=== PATIENT | male | born 2000 | race Caucasian/White ===

== ENCOUNTER 2021-04-08 09:44 | Emergency (ER) | payer OTHER ==
[2021-04-08 10:00] VITALS: BP 142/76
--- NOTE | 2021-04-08 10:48 | ED Physician Documentation ---
History of Present Illness - Stated complaint Stated Complaint: MALE - Chief complaint Chief Complaint: Abd Pain - History obtained from History obtained from: Patient - History of Present Illness Timing: How many weeks ago (several) Pain level max: 7 Pain level now: 4 - Additonal information Additional information: Patient is a 21-year-old male who presents to the emergency department with right inguinal groin pain. Dates that he is status post hernia repair back in December in [place]. Has had intermittent pain since that time. Has not seen a surgeon here. Worse with movement, better with rest. No vomiting. No other abdominal pain. No diarrhea or constipation. No urinary symptoms. Review of Systems Constitutional: denies: Fever, Chills GI: denies: Vomiting Skin: denies: Rash Musculoskeletal: denies: Neck pain, Back pain Neurologic: denies: Headache PD PAST MEDICAL HISTORY - Past Medical History Past Medical History: No - Past Surgical History Past Surgical History: No - Present Medications Home Medications: Ambulatory Orders Medication Instructions Recorded Confirmed HYDROcod/ACETAM 5/325 [[place] 5/325] 1 - 2 ea PO Q6H PRN #14 tablet 04/08/21 Ondansetron Odt [Zofran] 4 mg TL Q6H PRN #10 tablet 04/08/21 - Allergies Allergies/Adverse Reactions: Allergies Allergy/AdvReac Type Severity Reaction Status Date / Time No Known Drug Allergies Allergy Verified 04/08/21 09:53 - Living Situation Living Situation: reports: With family Living Arrangement: reports: At home PD ED PE NORMAL - Vitals Vital signs reviewed: Yes - General General: Alert and oriented X 3, No acute distress - HEENT HEENT: Moist mucous membranes - Neck Neck: Supple, no meningeal sign - Cardiac Cardiac: RRR - Respiratory Respiratory: No respiratory distress, Clear bilaterally - Abdomen Abdomen: Soft, Non tender, Non distended, Other (well healed incision to the R groin. no palpable hernia. no signs of infection.) - Derm Derm: Warm and dry - Neuro Neuro: Alert and oriented X 3 - Psych Psych: Normal mood, Normal affect Results - Vitals Vitals: Vital Signs - 24 hr 04/08/21 09:49 Temperature 36.5 C Heart Rate 88 Respiratory 18 Rate Blood Pressure 142/76 H O2 Saturation 100 Oxygen O2 Source Room air PD MEDICAL DECISION MAKING - ED course Complexity details: considered differential, d/w patient ED course: 21-year-old male with what appears to be a well-healing right inguinal hernia repair. We will have him follow-up with general surgery for further care. Patient is well-appearing, nontoxic. Afebrile. No signs of infection. No evidence of incarceration. No palpable hernia. I am prescribing a short course of short-acting opioid pain medication for this patient. I have reviewed the patients PROSTHETIC DENTIST and no concerning findings were noted. I have discussed that the opioids are for short term therapy only, and will not be refilled from the ED. patient counseled regarding signs and symptoms for which I believe and urgent re-evaluation would be necessary. Patient with good understanding of and agreement to plan and is comfortable going home at this time This document was made in part using voice recognition software. While efforts are made to proofread this document, sound alike and grammatical errors may occur. Departure - Departure Disposition: 01 Home, Self Care Clinical Impression: Post-operative pain Condition: Good Instructions: Hernia Surg Patch Repair Follow-Up: Collins Mayorga MD [Provider Admit Priv/Credential] - Surgical Care [Provider Group] Prescriptions: HYDROcod/ACETAM 5/325 [[place] 5/325] 1 - 2 ea PO Q6H PRN #14 tablet PRN Reason: Pain Ondansetron Odt [Zofran] 4 mg TL Q6H PRN #10 tablet PRN Reason: Nausea / Vomiting Comments: It is important that you follow-up with a surgeon to ensure proper healing of your hernia repair. It is advisable that you obtain records from [place] prior to following up with the surgeon here. If you can obtain your medical records online and print them, that will probably be the easiest for you. A prescription was sent to [facility] for you. Continue to gently massage the area. I am prescribing a short course of narcotic pain medication for you. These are potentially dangerous and addictive medications that should be used carefully. These medications may constipate you. Take an [id number] stool softener (docusate) twice daily with plenty of water while taking these medications. If you go 24 hours without a bowel movement, take [id number] miralax, per package instructions. Do not drink or drive while taking these medications. If you received narcotic or sedating medications while in the emergency department, do not drive for 24 hours. Store this medication in a safe, secure place and out of reach of children. It is a violation of federal law to give or sell this medication to another person or to use in a manner other than prescribed. The ED will not refill narcotic prescriptions, including prescriptions lost or stolen. To dispose of unwanted medications: 1. [facility] at [address] in [place] has a medication drop box. They accept prescription medications (in pill form) Monday through Monday 9:00 a.m. to 5:00 p.m. 2. The [facility] [employer] accepts prescription medications (in pill form only) for disposal year round. Call for more information. 3. Contact the [facility] for the next [facility] sponsored prescription drug collection event. , [phone], or [phone]; Discharge Date/Time: 04/08/21 11:06
== END 2021-04-08 11:06 | disposition home or self-care (01) ==
LOC: ED 09:44
DX: G89.18 Other acute postprocedural pain (principal); R10.31 Right lower quadrant pain
CPT/HCPCS: 99282; 99283

== ENCOUNTER 2021-04-13 20:29 | Emergency (ER) | payer OTHER ==
--- NOTE | 2021-04-13 20:37 | ED Physician Documentation ---
PD HPI MALE - Stated complaint Stated Complaint: MALE - Chief complaint Chief Complaint: Abd Pain - History obtained from History obtained from: Patient - History of Present Illness Timing - onset: How many weeks ago (right testicular pain), How many months ago (2 months (right groin pain)) Timing - details: Intermittant, Waxing and waning Pain level now: 8 Associated symptoms: No: Dysuria, Urinary frequency Recently seen: Emergency Dept - Additional information Additional information: recently moved from [place]. Patient underwent right inguinal hernia repair 2 months ago (in [place]). He says that since then, he has had right groin/inguinal pain and he was evaluated in this ED 04/08 for this, no specific diagnosis. He says he has been trying to arrange an appointment with local surgical group but is waiting for call back from staff there, thus does not yet have an appointment. He presents due to one week of gradually increasing (in frequency, intensity, and persistence) of right testicular pain. Patient says he has not picked up the rx for vicodin (prescribed 04/08 by this ED) as it is $90 and he is having difficulty coordinating with his insurance for a more affordable ibanez or alternative medication Review of Systems Constitutional: denies: Fever, Chills, Sweats GI: denies: Abdominal Pain : reports: Testicular pain. denies: Dysuria, Frequency, Incontinent, Hematuria PD PAST MEDICAL HISTORY - Past Medical History Past Medical History: No - Past Surgical History Past Surgical History: Yes General: Other (right inguinal hernia repair) - Present Medications Home Medications: Ambulatory Orders Medication Instructions Recorded Confirmed HYDROcod/ACETAM 5/325 [[place] 5/325] 1 - 2 ea PO Q6H PRN #14 tablet 04/08/21 Ondansetron Odt [Zofran] 4 mg TL Q6H PRN #10 tablet 04/08/21 Doxycycline Monohydrate 100 mg PO BID #19 cap 04/13/21 - Allergies Allergies/Adverse Reactions: Allergies Allergy/AdvReac Type Severity Reaction Status Date / Time No Known Drug Allergies Allergy Verified 04/13/21 20:32 PD ED PE NORMAL - Vitals Vital signs reviewed: Yes - General General: Alert and oriented X 3, No acute distress, Well developed/nourished - Abdomen Abdomen: Soft, Non tender - Derm Derm: Normal color, Warm and dry, No rash PD ED PE EXPANDED - Male Male : Normal Exam, Testes descended deepti, Normal lie/cremastaric, Other (mild TTP along medial aspect of right inguinal canal without swelling, erythema, fluctuance. surgical site has C/D/I scar. no testicular/scrotal swelling, erythema). No: Skin lesions, Discharge, Testicular Mass, Tenderness Results - Vitals Vitals: Oxygen O2 Source Room air - Labs Labs: Laboratory Tests 04/13/21 21:33 Urine Color YELLOW Urine Clarity CLEAR Urine pH 6.5 Ur Specific [place] <=1.005 Urine Protein NEGATIVE Urine Glucose (UA) NEGATIVE Urine Ketones NEGATIVE Urine Occult Blood NEGATIVE Urine Nitrite NEGATIVE Urine Bilirubin NEGATIVE Urine Urobilinogen 0.2 (NORMAL) Ur Leukocyte Esterase NEGATIVE Ur Microscopic Review NOT INDICATED Urine Culture Comments NOT INDICATED - Rads (name of study) right testicular US w/ doppler Radiology: Prelim report reviewed, See rad report PD MEDICAL DECISION MAKING - ED course Complexity details: reviewed results, re-evaluated patient, considered differential, d/w patient ED course: US suggestive of epididymitis, will cover with antibiotic for possible bacterial cause, recommend follow up and return precautions discussed Departure - Departure Disposition: 01 Home, Self Care Clinical Impression: Epididymitis Condition: Good Instructions: ED Epididymitis Prescriptions: Doxycycline Monohydrate 100 mg PO BID #19 cap Comments: A prescription for an antibiotic (doxycycline) has been electronically submitted [facility] in [place]. Discharge Date/Time: 04/13/21 23:33
[2021-04-13] MEDS ORDERED: IBUPROFEN 600 MG TABLET PO STA (20:51)
[2021-04-13 21:46] LABS: BILIRUBIN,URINE NEGATIVE (NEGATIVE); GLUCOSE, URINE (UA) NEGATIVE (NEGATIVE); KETONES,URINE (UA) NEGATIVE (NEGATIVE); LEUKOCYTE ESTERASE, URINE NEGATIVE (NEGATIVE); NITRITE,URINE NEGATIVE (NEGATIVE); OCCULT BLOOD,URINE NEGATIVE (NEGATIVE); PH,URINE 6.5 PH (5.0-7.5); PROTEIN,URINE NEGATIVE (NEGATIVE); UROBILINOGEN,URINE 0.2 (NORMAL) E.U./dL (NORMAL)
[2021-04-13 21:49] LABS: CLARITY,URINE CLEAR (CLEAR)
--- NOTE | 2021-04-13 22:16 | Ultrasound Report ---
PROCEDURE: Testicle w/Doppler INDICATIONS: right testicle pain TECHNIQUE: Real-time scanning was performed of the scrotum and testicles, with image documentation. Color and p ulse Doppler interrogation was performed of both testicles. COMPARISON: None. FINDINGS: Right: Testicle is normal in size at 4.3 x 2.1 x 2.5 cm, and homogenous in echotexture. There is hyp eremic appearance of the right epididymis. No hydrocele or varicoceles. Overlying scrotal skin is n ormal in thickness. Left: Testicle is normal in size at 4.1 x 2.3 x 3.1 cm, and homogeneous in echotexture. Epididymis is normal in overall size and morphology. No hydrocele or varicoceles. Overlying scrotal skin is no rmal in thickness. Doppler: Color and pulse Doppler demonstrate normal and symmetric arterial flow in both testicles. IMPRESSION: Hyperemic right epididymis raising the possibility of epididymitis. Please correlate clinically and t o urinalysis data. Reviewed by: Tommy Ashton MD on 04/13/2021 10:15 PM PST Approved by: Tommy Ashton MD on 04/13/2021 10:15 PM PST Station ID: [id number]
[2021-04-13 23:09] VITALS: BP 102/72
[2021-04-13] MEDS ORDERED: cefTRIAXone 500 MG VIAL IM STA (23:15)
[2021-04-13] MEDS ORDERED: LIDOCAINE 1% 2 ML VIAL MC ONE (23:15)
[2021-04-13] MEDS ORDERED: DOXYCYCLINE 100 MG TABLET PO STA (23:16)
[2021-04-13] MEDS ORDERED: HYDROcod/ACETAM 5/325 MG TABLET PO STA (23:16)
[2021-04-13] MEDS ORDERED: ONDANSETRON ODT 4 MG TABLET TL STA (23:28)
== END 2021-04-13 23:33 | disposition home or self-care (01) ==
LOC: ED 20:29
DX: N45.1 Epididymitis (principal); Z98.890 Other specified postprocedural states
CPT/HCPCS: 76870; 81003; 93975; 96372; 99283; 99284; A9270; Q0162; 81001; 87086

== ENCOUNTER 2021-04-25 08:22 | Emergency (ER) | payer OTHER ==
[2021-04-25 08:36] VITALS: BP 135/75
--- NOTE | 2021-04-25 09:05 | ED Physician Documentation ---
PD HPI MALE - Stated complaint Stated Complaint: MALE - Chief complaint Chief Complaint: General - History obtained from History obtained from: Patient - History of Present Illness Timing - duration: Weeks (had hernia repair recently and has persistent pain at medial incisional area. had recent scrotal pain too, Dx as epididymitis by U/S recently in ER. Rx with Doxycycline and feels improved but not all better.) Timing - details: Gradual onset, Still present (has improved but not completely.) Associated symptoms: No: Dysuria, Urinary frequency, Scrotal swelling (but scrotal tenderness above the testicle.) Recently seen: Emergency Dept Review of Systems Constitutional: denies: Fever, Chills GI: denies: Nausea, Vomiting, Constipation Skin: denies: Rash, Lesions PD PAST MEDICAL HISTORY - Past Medical History Cardiovascular: None Respiratory: None Neuro: None Endocrine/Autoimmune: None GI: None : Other HEENT: None Psych: None Musculoskeletal: None Derm: None - Past Surgical History Past Surgical History: Yes General: Other (right inguinal hernia repair) - Present Medications Home Medications: Ambulatory Orders Medication Instructions Recorded Confirmed HYDROcod/ACETAM 5/325 [[place] 5/325] 1 - 2 ea PO Q6H PRN #14 tablet 04/08/21 Ondansetron Odt [Zofran] 4 mg TL Q6H PRN #10 tablet 04/08/21 Doxycycline Monohydrate 100 mg PO BID #19 cap 04/13/21 - Allergies Allergies/Adverse Reactions: Allergies Allergy/AdvReac Type Severity Reaction Status Date / Time No Known Drug Allergies Allergy Verified 04/25/21 08:36 - Social History Does the pt smoke?: No Smoking Status: Never smoker PD ED PE NORMAL - Vitals Vital signs reviewed: Yes - General General: Alert and oriented X 3, No acute distress, Well developed/nourished - Abdomen Abdomen: Normal bowel sounds, Soft, Non distended, No organomegaly, Other (tender right inguinal area with well healing incision. There is tenderness with slight firm tissue medial to the suture line end most likely c/w scar tissue or suture knot. No signs of infection. ) - Male Male : Other (right scrotum with mild inflammation of epididmyis and tender. Testicle feels normal and not tender. No other masses. ) Results - Vitals Vitals: Oxygen O2 Source Room air PD MEDICAL DECISION MAKING - ED course Complexity details: reviewed old records, reviewed results, considered differential (improved scrotal pain with abx and some NSAIDs but not fully resolved. I think needs more time. The inguinal area is probably scar tissue. ), d/w patient Departure - Departure Disposition: 01 Home, Self Care Clinical Impression: Testicular/scrotal pain, Status post hernia repair, Post-operative pain Condition: Stable Record reviewed to determine appropriate education?: Yes Follow-Up: Collins Mayorga MD [Provider Admit Priv/Credential] - Comments: I think the persistent tenderness some mild inflammation of the epididymis on the right is inflammatory and not persistent infection. I would suggest using some anti-inflammatories regularly such as ibuprofen 400 to 600 mg 3 times a day for the next 6 to 7 days. Alternative would be naproxen (Advil) 440 mg (2 [id number] tablets) twice daily for the same 6 to 7 days. To that add Tylenol 650 mg 3 or 4 times a day as needed for your pain as well. Activity as tolerated. If the scrotal/epididymal tenderness persists or increases again, we might consider recourse of antibiotics. Regarding the inguinal scar tenderness, I would continue with gentle massaging around the area to break up scar tissue and regular activity. Warmth such as a warm moist towel to the area along with the massaging may help as well. Follow-up with the general surgery if the scar tissue/surgical site tenderness persists another couple/few weeks. Discharge Date/Time: 04/25/21 09:16
== END 2021-04-25 09:16 | disposition home or self-care (01) ==
LOC: ED 08:22
DX: N50.82 Scrotal pain (principal); G89.18 Other acute postprocedural pain; R10.31 Right lower quadrant pain
CPT/HCPCS: 99281; 99282